=== PATIENT | female | born 1995 | race African-American/Black ===

== ENCOUNTER 2016-08-18 08:14 | Emergency (ER) | payer OTHER ==
[~2016-08-18] VITALS: Ht 167.6 cm; Wt 77.0 kg
[~2016-08-18 08:14] MED LIST: ATIVAN0.5 MG PO; LEXAPRO10 MG PO; PRENATAL TABLE1 EAC3 PO; VALTREX50 MG/ML PO; VENTOLIN HFA18 GM IH
[2016-08-18] MEDS ORDERED: SPRINTEC1 EACH PO (09:00)
[2016-08-18] MEDS ORDERED: BIOTIN10000 MC1 PO (09:01)
[2016-08-18 09:28] LABS: ADD MIUA? YES; BILIRUBIN NEGATIVE; BLOOD NEGATIVE; COLOR YELLOW ((YELLOW)); GLUCOSE (STRIP) NEGATIVE; KETONES NEGATIVE; LEUKOCYTES NEGATIVE; NITRITE NEGATIVE; PH, URINE 7.5 (5-8); PROTEIN (STRIP) TRACE; SPECIFIC GRAVITY 1.024 (1.000-1.030)
[2016-08-18 09:32] LABS: EOSINOPHIL (%) 4.9 % (0-5); EOSINOPHIL COUNT 0.4 K/uL (0-0.3); HEMATOCRIT 35.7 % (36.0-46.0); IMMATURE GRANULOCYTE (%) 0.1 % (0.0-0.7); IMMATURE GRANULOCYTE COUNT 0.1 K/uL; LYMPHOCYTE COUNT 2.2 K/uL (1.0-2.8); MCH 30.6 PG (29.0-34.0); MCV 82.8 FL (83-99); MEAN PLAT.VOLUME 11.1 uM^3 (9.5-12.4); MONOCYTE (%) 8.5 % (3-12); MONOCYTE COUNT 0.8 K/uL (0-0.8); NEUTROPHIL (%) 60.9 % (45-76); NEUTROPHIL COUNT 5.4 K/uL (1.8-6.4); PLATELET COUNT 266 K/uL (156-360); RBC DIS.WIDTH-CV 11.8 % (11.8-14.6); RED BLOOD COUNT 4.31 M/uL (3.80-5.20); WHITE BLOOD COUNT 8.9 K/uL (4.1-10.2)
[2016-08-18 09:39] LABS: BACTERIA 2+; CASTS NONE SEEN /LPF; CRYSTALS NONE SEEN; EPITHELIAL CELLS 2+; MUCUS NONE SEEN; PATHOLOGICAL CAST NONE SEEN; RED BLOOD CELLS 0-5 /HPF (0-5); SMALL ROUND CELL NONE SEEN; UCUL ADDED? NO; WHITE BLOOD CELLS 0-5 /HPF (0-5); YEAST-LIKE CELL NONE SEEN
[2016-08-18 09:40] LABS: CHLORIDE 107 mEq/L (99-109); POTASSIUM 3.7 mEq/L (3.7-5.4); SODIUM 137 mEq/L (136-147)
[2016-08-18 09:42] LABS: GLUCOSE 87 mg/dL (70-99)
[2016-08-18 09:43] LABS: ANION GAP 10 MEQ/L (2-14)
[2016-08-18 09:45] LABS: GFR ESTIMATE (CALCULATED) > 59 mL/min/
[2016-08-18 09:46] LABS: UREA NITROGEN (BUN) 8 mg/dL (9-23)
[2016-08-18 09:55] LABS: QUANTITATIVE HCG < 4.0 MIU/ML
[2016-08-18 12:07] VITALS: BP 110/76
== END 2016-08-18 12:10 | disposition home or self-care (01) ==
LOC: EME 08:14
PROVIDERS: Emergency Medicine
DX: R10.30 Lower abdominal pain, unspecified (principal)
CPT/HCPCS: 74176; 80048; 81003; 84702; 85025; 99281; 99285; J7030

== ENCOUNTER 2016-10-31 01:20 | Emergency (ER) | payer OTHER ==
[~2016-10-31] VITALS: Ht 167.6 cm; Wt 78.5 kg
[~2016-10-31 01:20] MED LIST changes: +BIOTIN10000 MC1 PO; +SPRINTEC1 EACH PO
[2016-10-31 02:09] LABS: HEMATOCRIT 35.2 % (36.0-46.0); MCH 29.7 PG (29.0-34.0); MCHC 35.5 G/DL (30.0-36.0); MCV 83.6 FL (83-99); RBC DIS.WIDTH-CV 11.9 % (11.8-14.6); RBC DIS.WIDTH-SD 36.1 % (39-53); RED BLOOD COUNT 4.21 M/uL (3.80-5.20); WHITE BLOOD COUNT 7.7 K/uL (4.1-10.2)
[2016-10-31 02:19] LABS: CHLORIDE 108 mEq/L (99-109); POTASSIUM 3.2 mEq/L (3.7-5.4); SODIUM 138 mEq/L (136-147)
[2016-10-31 02:21] LABS: GLUCOSE 96 mg/dL (70-99)
[2016-10-31 02:22] LABS: ANION GAP 8 MEQ/L (2-14)
[2016-10-31 02:24] LABS: SERUM ETHYL ALCOHOL < 10 mg/dL
[2016-10-31 02:25] LABS: GFR ESTIMATE (CALCULATED) > 59 mL/min/; UREA NITROGEN (BUN) 10 mg/dL (9-23)
[2016-10-31 02:34] LABS: QUANTITATIVE HCG < 4.0 MIU/ML
[2016-10-31 03:11] VITALS: BP 118/76
[2016-10-31 03:15] LABS: MEAN PLAT.VOLUME 10.6 uM^3 (9.5-12.4); PLAT.SUFFICIENCY ADEQUATE; PLATELET COUNT 337 K/uL (156-360)
== END 2016-10-31 03:23 | disposition home or self-care (01) ==
LOC: EME → EDBD 01:20 → EME 03:23
PROVIDERS: Emergency Medicine
DX: F32.9 Major depressive disorder, single episode, unspecified (principal); S51.812A Laceration without foreign body of left forearm, initial encounter; X78.1XXA Intentional self-harm by knife, initial encounter
CPT/HCPCS: 80048; 84702; 85027; 90837; G0480

== ENCOUNTER 2016-12-18 19:33 | Emergency (ER) | payer OTHER ==
[~2016-12-18] VITALS: Ht 170.2 cm; Wt 78.1 kg
[2016-12-18] MEDS ORDERED: VENTOLIN HFA18 GM IH (20:10)
[2016-12-18 21:00] LABS: INTERNAL CONTROL VALID? YES; MONOSPOT (MONONUCLEOSIS SEROL) NEGATIVE
[2016-12-18] MEDS ORDERED: AMOXICILLIN875 MG PO (21:06)
[2016-12-18 21:14] VITALS: BP 128/74
== END 2016-12-18 21:14 | disposition home or self-care (01) ==
LOC: EXP 19:33 → EME 19:33 → EXP 21:14
PROVIDERS: Physician Assistant
DX: J02.9 Acute pharyngitis, unspecified (principal); R05 Cough; R51 Headache; J35.1 Hypertrophy of tonsils; R59.0 Localized enlarged lymph nodes; J45.909 Unspecified asthma, uncomplicated
CPT/HCPCS: 86308; 99281; 99284; J8540

== ENCOUNTER 2017-12-19 14:08 | Emergency (ER) | payer OTHER ==
[~2017-12-19] VITALS: Ht 167.6 cm; Wt 81.2 kg
[~2017-12-19 14:08] MED LIST changes: +AMOXICILLIN875 MG PO
[2017-12-19 14:56] LABS: APPEARANCE CLEAR ((CLEAR)); BILIRUBIN NEGATIVE; BLOOD NEGATIVE; COLOR YELLOW ((YELLOW)); GLUCOSE (STRIP) NEGATIVE; KETONES NEGATIVE; LEUKOCYTES NEGATIVE; NITRITE NEGATIVE; PROTEIN (STRIP) NEGATIVE; SPECIFIC GRAVITY 1.021 (1.000-1.030); UROBILINOGEN 0.2 MG/DL (0.2-1.0)
[2017-12-19 15:14] LABS: BASOPHIL (%) 0.6 % (0-1); BASOPHIL COUNT 0.1 K/uL (0-0.1); EOSINOPHIL (%) 7.3 % (0-5); EOSINOPHIL COUNT 0.7 K/uL (0-0.3); HEMATOCRIT 33.9 % (36.0-46.0); HEMOGLOBIN 12.3 G/DL (11.9-15.5); IMMATURE GRANULOCYTE (%) 0.3 % (0.0-0.7); LYMPHOCYTE (%) 28.8 % (15-42); LYMPHOCYTE COUNT 2.8 K/uL (1.0-2.8); MCH 30.2 PG (29.0-34.0); MCHC 36.3 G/DL (30.0-36.0); MCV 83.3 FL (83-99); MONOCYTE (%) 8.9 % (3-12); MONOCYTE COUNT 0.9 K/uL (0-0.8); NEUTROPHIL (%) 54.1 % (45-76); NEUTROPHIL COUNT 5.3 K/uL (1.8-6.4); PLATELET COUNT 271 K/uL (156-360); RBC DIS.WIDTH-CV 11.8 % (11.8-14.6); RBC DIS.WIDTH-SD 35.8 % (39-53); RED BLOOD COUNT 4.07 M/uL (3.80-5.20); WHITE BLOOD COUNT 9.8 K/uL (4.1-10.2)
[2017-12-19 15:22] LABS: ALBUMIN 3.8 g/dL (3.2-4.8)
[2017-12-19 15:23] LABS: CHLORIDE 104 mEq/L (99-109); POTASSIUM 3.8 mEq/L (3.7-5.4); SODIUM 135 mEq/L (136-147)
[2017-12-19 15:25] LABS: GLUCOSE 88 mg/dL (70-99); TOTAL PROTEIN 6.7 g/dL (6.4-8.3)
[2017-12-19 15:27] LABS: TOTAL BILIRUBIN 0.4 mg/dL (0.0-1.0)
[2017-12-19 15:28] LABS: ALKALINE PHOSPHATASE 49 IU/L (3-129)
[2017-12-19 15:29] LABS: CREATININE 0.7 mg/dL (0.6-1.3); GFR ESTIMATE (CALCULATED) > 59 mL/min/
[2017-12-19 15:30] LABS: AST (GOT) 12 IU/L (2-34); UREA NITROGEN (BUN) 9 mg/dL (9-23)
[2017-12-19 15:31] LABS: ALT (GPT) 10 IU/L (3-49)
[2017-12-19 15:32] LABS: LIPASE 6 U/L (1.0-51.0)
[2017-12-19 15:37] LABS: QUANTITATIVE HCG 1347.6 MIU/ML
[2017-12-19 15:45] VITALS: BP 131/79
== END 2017-12-19 15:47 | disposition home or self-care (01) ==
LOC: EME 14:08
PROVIDERS: Physician Assistant
DX: O26.891 Other specified pregnancy related conditions, first trimester (principal); R10.30 Lower abdominal pain, unspecified; R11.0 Nausea; O99.341 Other mental disorders complicating pregnancy, first trimester; F41.9 Anxiety disorder, unspecified; O99.511 Diseases of the respiratory system complicating pregnancy, first trimester; J45.909 Unspecified asthma, uncomplicated; Z3A.00 Weeks of gestation of pregnancy not specified
CPT/HCPCS: 80053; 81003; 83690; 84702; 85025; 99281; 99284